=== PATIENT | female | born 1960 | race African-American/Black ===

== ENCOUNTER 2019-03-21 21:52 | Emergency (ER) | payer MEDICAID ==
[~2019-03-21] VITALS: Ht 170.2 cm; Wt 113.4 kg
[2019-03-21 21:58] VITALS: BP 118/74
--- NOTE | 2019-03-21 21:58 | NUR ---
ED Nurse Note: Walk-in aptient presents with complaints of leg pain. PAtient is ambulatory with steady gait an highly aggitated. Patient appears to be manic, asking repeatedly for water and never getting it. Patient is pacing to and fro and insisted on washing her face with hand plaster die maker. Patient is unable to sit down and be still, will continue to monitor.
--- NOTE | 2019-03-21 22:19 | NUR ---
ED Nurse Note: ERMD at bedside.
[2019-03-21] MEDS ORDERED: IBUPROFEN600 MG ORAL (22:25)
--- NOTE | 2019-03-21 22:25 | Emergency Room Report ---
History of Present Illness General Chief Complaint: Pain Source: Patient Present Illness HPI This is a 58-year-old female with no past medical history. She presents with chief complaint of left leg pain. She said that she fell yesterday and landed on her butt. She took 4 Tylenol she said it felt better. No nausea no vomiting. No fever chills but she walking without any difficulty. Allergies: Coded Allergies: GUAIFENESIN (Verified Allergy, Unknown, 03/21/19) Patient History Past Medical History: see triage record, old chart reviewed Past Surgical History: none Pertinent Family History: none Social History: Denies: smoking Last Menstrual Period: NA Now: No : 5 Para: 5 Immunizations: other Reviewed Nursing Documentation: PMH: Agreed; PSxH: Agreed Nursing Documentation-PMH Past Medical History: No Stated History Hx Cardiac Problems: No Hx Hypertension: No Hx Pacemaker: No Hx Asthma: No Hx COPD: No Hx Diabetes: No Hx Cancer: No Hx Gastrointestinal Problems: No Hx Dialysis: No History Of Psychiatric Problem: No Hx Neurological Problems: No Hx Cerebrovascular Accident: No Hx Seizures: No Review of Systems Eye: Denies: eye pain, blurred vision ENT: Denies: ear pain, nose congestion, throat swelling Respiratory: Denies: cough, shortness of breath Cardiovascular: Denies: chest pain, palpitations Gastrointestinal: Denies: abdominal pain, diarrhea, nausea, vomiting Musculoskeletal: Reports: muscle pain; Denies: back pain, joint pain Skin: Denies: rash Neurological: Denies: headache, numbness Endocrine: Denies: increased thirst, increased urine Hematologic/Lymphatic: Denies: easy bruising All Other Systems: negative except mentioned in HPI Physical Exam Vital Signs Date Time Temp Pulse Resp B/P (MAP) Pulse Ox O2 Delivery O2 Flow Rate FiO2 03/21/19 21:58 98.4 105 19 118/74 (89) 97 Room Air Vitals with mild tachycardia Sp02 EP Interpretation: reviewed, normal General Appearance: well appearing, no apparent distress, alert Head: normocephalic, atraumatic Eyes: bilateral eye PERRL, bilateral eye EOMI ENT: hearing grossly normal, normal pharynx Neck: full range of motion, supple, no meningismus Respiratory: chest non-tender, lungs clear, normal breath sounds Cardiovascular #1: regular rate, rhythm, no murmur Gastrointestinal: normal bowel sounds, non tender, no mass, no organomegaly, no bruit, non-distended Musculoskeletal: back normal, normal range of motion, gait/station normal Psychiatric: mood/affect normal Medical Decision Making Diagnostic Impression: Primary Impression: Left buttock pain ER Course Patient claimed that she fell yesterday and complaining of left leg pain. She started swelling of her right leg to show me the injury. And then she showed me the left lower extremity. Then she told me it was her buttock that was hurting. I see no injury whatsoever. She is sitting down without any problem. Will discharge home. Last Vital Signs Date Time Temp Pulse Resp B/P (MAP) Pulse Ox O2 Delivery O2 Flow Rate FiO2 03/21/19 21:58 98.4 105 19 118/74 (89) 97 Room Air Status: improved Disposition: HOME, SELF-CARE Condition: Stable Scripts Ibuprofen* (MOTRIN*) 600 Mg Tablet 600 MG ORAL THREE TIMES A DAY, #30 TAB 0 Refills Prov: Saulo Pennington MD 03/21/19 Referrals: [facility] (PCP) Additional Instructions: Follow-up with your doctor in 7 days. Return if worse. Saulo Pennington MD Mar 21, 2019 22:25
--- NOTE | 2019-03-21 22:31 | NUR ---
ED Nurse Note: Patient cleared for discharge by ERMd. Patient verbalized undertanding and departed with all belongings to bus.
[2019-03-21 22:38] VITALS: BP 118/74
== END 2019-03-21 22:39 | disposition home or self-care (01) ==
LOC: EDBD 21:52 → EMR 22:15
DX: R52 Pain, unspecified (principal); W18.30XA Fall on same level, unspecified, initial encounter; Y93.9 Activity, unspecified; Y92.9 Unspecified place or not applicable; Z88.8 Allergy status to other drugs, medicaments and biological substances
CPT/HCPCS: 99282